=== PATIENT | female | born 1945 | race Caucasian/White ===

== ENCOUNTER 2016-06-16 03:50 | Emergency (ER) | payer MEDICARE ==
[2016-06-16 03:28] LABS: BASOPHILS 0.7 %; BASOPHILS ABSOLUTE 0.04 10/3/uL (0.0-0.16); EOSINOPHILS 1.8 %; ER CBC TAT 0 Hrs 08 Mins; HEMATOCRIT 29.7 % (36.0-48.0); HEMOGLOBIN 8.8 g/dL (12.0-16.0); IMMATURE GRANULOCYTES 0.6 %; IMMATURE GRANULOCYTES ABSOLUTE 0.03 10/3/uL (0.0-0.11); LYMPHOCYTES ABSOLUTE 1.85 10/3/uL (0.67-4.30); MEAN PLATELET VOLUME 10.9 fL (9.2-13.0); MONOCYTES 16.9 %; MONOCYTES ABSOLUTE 0.92 10/3/uL (0.21-1.20); RBC DISTRIBUTION WIDTH 16.2 % (12.0-16.0); RED CELL COUNT 4.14 10/6/uL (4.0-5.6); WHITE BLOOD CELLS 5.4 10/3/uL (4.5-10.5)
[2016-06-16 03:29] LABS: MEAN CORPUS HGB CONC 29.6 g/dL (32.0-36.0); MEAN CORPUSCULAR HEMOGLOB 21.3 pg (26.0-34.0); MEAN CORPUSCULAR VOLUME 71.7 fL (80-100); PLATELET COUNT 94 10/3/uL (150-400)
[2016-06-16 03:30] LABS: MANUAL DIFF NO %
[2016-06-16 03:32] LABS: INTERNATIONAL NORMAL RATI 1.2 UNITS (-); PARTIAL THROMBO TIME 30.9 SEC (22.5-37.2); PROTIME (NOT ORD) 14.7 SEC (12.0-14.5)
[2016-06-16 03:43] LABS: ALBUMIN 3.3 G/DL (3.5-5.0); BUN (BLOOD UREA NITROGEN) 8 MG/DL (6-23); CALCIUM, SERUM 8.2 MG/DL (8.5-10.4); CHEST PAIN PROFILE TAT 0 Hrs 23 Mins; CHLORIDE, SERUM 108 MMOL/L (96-112); CO2 (CARBON DIOXIDE) 26 MMOL/L (24-34); CREATININE 1.07 MG/DL (0.55-1.02); DIRECT BILIRUBIN 0.2 MG/DL (0.0-0.4); GFR AFRICAN AMERICAN 61 ML/MIN (>=60); GFR NON AFRICAN AMERICAN 53 ML/MIN (>=60); SGOT(AST) 11 U/L (5-40); SGPT(ALT) 18 U/L (5-65); SODIUM, SERUM 142 MMOL/L (135-148); TROPONIN I <0.02 NG/ML (<0.05)
[2016-06-16 03:46] LABS: ALKALINE PHOSPHATASE 202 U/L (45-117); GLUCOSE, SERUM 154 MG/DL (60-99); INDIRECT BILIRUBIN(NOT ORDER) 0.2 MG/DL (0.1-0.9); TOTAL BILIRUBIN 0.4 MG/DL (0-1.2)
[~2016-06-16 03:50] MED LIST: ESTRACE1 MG PO; HYDROCHLOROT50 MG PO; INDE80 PO; KDUR20 PO; LIPITOR20 PO; NEXIUM40 PO; PLAQ200B PO; PRILO PO; PROTONIX PO; REG PO; SYN1 PO; XALAT OPH; ZOL50 PO
[2016-06-16 03:59] LABS: PLATELET ESTIMATE DEC (ADEQUATE)
[2016-06-16 04:00] LABS: HYPOCHROMIA 1+ (3-10/OIF) (0-2/OIF)
[2016-06-16 04:01] LABS: ELLIPTOCYTES 1+ (3-10/OIF) (0-2/OIF)
[2016-06-24] MEDS ORDERED: AMARYL2 PO (09:18)
[2016-06-24] MEDS ORDERED: AMB10 PO (09:18)
[2016-06-24] MEDS ORDERED: PLAQ200B PO (09:19)
[2016-06-24] MEDS ORDERED: PREV30 PO (09:19)
[2016-06-24] MEDS ORDERED: SYN88 PO (09:20)
== END 2016-06-16 04:21 | disposition home or self-care (01) ==
LOC: ER 03:50
PROVIDERS: Emergency Medicine
DX: K80.20 Calculus of gallbladder without cholecystitis without obstruction (principal); D64.9 Anemia, unspecified; I10 Essential (primary) hypertension; K21.9 Gastro-esophageal reflux disease without esophagitis; M32.9 Systemic lupus erythematosus, unspecified; Z90.710 Acquired absence of both cervix and uterus; Z88.2 Allergy status to sulfonamides; Z88.5 Allergy status to narcotic agent; Z88.0 Allergy status to penicillin; Z79.899 Other long term (current) drug therapy
CPT/HCPCS: 71010; 74176; 80048; 80076; 83690; 83735; 84484; 85025; 85610; 85730; 93005; 99285; A9270-GY

== ENCOUNTER 2016-06-26 11:16 | Observation (INO) | payer MEDICARE ==
[2016-06-24 12:52] LABS: BASOPHILS 0.8 %; BASOPHILS ABSOLUTE 0.04 10/3/uL (0.0-0.16); EOSINOPHILS 1.6 %; EOSINOPHILS ABSOLUTE 0.08 10/3/uL (0.0-0.53); HEMATOCRIT 29.5 % (36.0-48.0); HEMOGLOBIN 8.8 g/dL (12.0-16.0); IMMATURE GRANULOCYTES 0.6 %; IMMATURE GRANULOCYTES ABSOLUTE 0.03 10/3/uL (0.0-0.11); LYMPHOCYTES 36.9 %; LYMPHOCYTES ABSOLUTE 1.82 10/3/uL (0.67-4.30); MEAN CORPUS HGB CONC 29.8 g/dL (32.0-36.0); MEAN CORPUSCULAR HEMOGLOB 21.2 pg (26.0-34.0); MEAN CORPUSCULAR VOLUME 70.9 fL (80-100); MONOCYTES ABSOLUTE 0.74 10/3/uL (0.21-1.20); NEUTROPHILS 45.1 %; NEUTROPHILS ABSOLUTE 2.22 10/3/uL (2.02-8.40); PLATELET COUNT 103 10/3/uL (150-400); RBC DISTRIBUTION WIDTH 16.3 % (12.0-16.0); RED CELL COUNT 4.16 10/6/uL (4.0-5.6); WHITE BLOOD CELLS 4.9 10/3/uL (4.5-10.5)
[2016-06-24 12:53] LABS: MANUAL DIFF NO %
[2016-06-24 13:10] LABS: HYPOCHROMIA 3+ (>30/OIF) (0-2/OIF); PLATELET ESTIMATE SLT DEC (ADEQUATE); RBC MORPHOLOGY ABN (NORMAL)
[2016-06-24 13:14] LABS: A/G RATIO 1.1 (0.7-1.9); ALBUMIN 3.5 G/DL (3.5-5.0); ALKALINE PHOSPHATASE 156 U/L (45-117); BUN (BLOOD UREA NITROGEN) 9 MG/DL (6-23); CALCIUM, SERUM 8.6 MG/DL (8.5-10.4); CHLORIDE, SERUM 106 MMOL/L (96-112); CO2 (CARBON DIOXIDE) 28 MMOL/L (24-34); GFR AFRICAN AMERICAN 87 ML/MIN (>=60); GFR NON AFRICAN AMERICAN 75 ML/MIN (>=60); GLOBULIN 3.2 G/DL (2.5-4.1); GLUCOSE, SERUM 166 MG/DL (60-99); POTASSIUM, SERUM 4.2 MMOL/L (3.5-5.3); SGOT(AST) 15 U/L (5-40); SGPT(ALT) 16 U/L (5-65); SODIUM, SERUM 139 MMOL/L (135-148); TOTAL BILIRUBIN 0.6 MG/DL (0-1.2); TOTAL PROTEIN 6.7 G/DL (6.0-8.5)
[2016-06-24 13:56] LABS: ASCORBIC ACID (UR NOT ORDER) NEG (NEG); BILIRUBIN, URINE NEGATIVE (NEG); KETONE, URINE NEGATIVE (NEG); LEUKOCYTE ESTERASE(NOT OR MOD (NEG); WBC (NOT ORDERED) (RFLEX) 67 (0-5)
--- NOTE | ~2016-06-26 | OP ---
Record Of Operation [facility] [address] [place]. [address] NAME: KASSI RAMACHANDRAN : 45 STATUS : DIS Gonzalez PAT#: [id number] AGE: 70 ADM/REG DATE : 06/26/16 MR#: [id number] REPORT SERV DATE: 07/01/16 DICTATED BY: SRIDHAR ARROYO DATE: 07/01/16 REPORT STATUS : Draft TRANSCRIBED BY: MODL DATE: 07/01/16 DATE OF PROCEDURE: 06/26/2016 PREOPERATIVE DIAGNOSIS: Symptomatic gallstones, possible cirrhosis of the liver, prior open gastric surgery. POSTOPERATIVE DIAGNOSIS: Symptomatic gallstones, cirrhosis of the liver, extensive upper midline abdominal adhesions. PROCEDURE: Laparoscopic cholecystectomy with intraoperative cholangiogram and Demarco-Cut needle biopsy right lobe of liver. SURGEON: Sridhar Arroyo M.D. ANESTHESIA: General endotracheal. ESTIMATED BLOOD LOSS: 100 mL. FLUIDS: Crystalloid. SPECIMEN: Gallbladder and needle biopsy of right lobe of liver. DRAINS: 15 fluted subhepatic. COMPLICATIONS: None immediate. CONDITION: Fair. 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 She has now developed symptomatic gallstones. She also has splenomegaly with diminished white count, platelet count. No obvious evidence of cirrhosis on ultrasound or CT. She very clearly suffered from symptomatic stones and after review of risks, benefits, options, side effects, she would like to pursue a cholecystectomy to get symptom relief. Her primary provider would like a liver biopsy to try to rule in or rule out chronic liver disease. Again, the patient has undergone previous open gastric surgery. We have reviewed the risks, benefits, potential for open procedure. PROCEDURE IN DETAIL: After being identified in preop holding, she was brought to OR, positioned supine. General endotracheal anesthesia was induced. Time-out was performed. Ancef was given intravenously. In the mid right abdomen at the level of the umbilicus, we infiltrated Marcaine solution, made a vertical skin incision, dissected through the subcutaneous and exposed the abdominal wall. Traction suture 0 Vicryl was applied. We dissected through the layers of abdominal wall exposing the preperitoneal plane. Deeper layer of 0 Vicryl traction sutures were Record Of Operation [facility] [address] [place]. [address] NAME: KASSI RAMACHANDRAN : 45 STATUS : DIS Gonzalez PAT#: [id number] AGE: 70 ADM/REG DATE : 06/26/16 MR#: [id number] REPORT SERV DATE: 07/01/16 DICTATED BY: SRIDHAR ARROYO DATE: 07/01/16 REPORT STATUS : Draft TRANSCRIBED BY: GISEL DATE: 07/01/16 applied. We then grasped peritoneum, elevated, opened with Metzenbaum scissors, and we were within the peritoneal cavity. A 10 mm balloon trocar was anchored, 15 mm carbon dioxide pneumoperitoneum was created, and a 30-degree 5 mm scope was advanced. There was extensive adhesions to the midline incision that extended from the umbilicus to the xiphoid; however, we were able to visualize the gallbladder in the right upper quadrant. There was adhesion in the adherence from the prior gastric polyp excision and pyloroplasty with the duodenum adherent to the underside of the left lobe of the liver, but there appeared the intervening fat between the duodenum and the medial neck of the gallbladder. At this point, we with visualization through the laparoscope and Marcaine infiltration made skin incision and advanced a 10 mm trocar in the medial right subcostal region just lateral to the adherent stomach and omental fat. We then placed a 5 mm trocar in the lateral right subcostal and lateral lower right abdominal wall again with visualization through the laparoscope. The gallbladder was a bit tense, it was punctured and decompressed of a clear colorless fluid. It was retracted superiorly and lateral, and we were able to free some filmy adhesion of the infrahepatic fat down to the neck of the gallbladder. The peritoneal folds along the neck of the gallbladder were dissected open with a Maryland-type dissector. I was able identify the cystic duct egressing the gallbladder. There was clearly a cirrhotic liver with portal hypertension. There was quite a bit of bloody oozing from the liver. We dissected the cystic duct circumferential, milked towards the gallbladder, placed an occlusive clip across the neck of the gallbladder. Next, made a cystic ductotomy and advanced and anchored the cholangiogram catheter. Fluoroscopy was brought on the field. Cholangiogram revealed a spiraling cystic duct that coursed into a nondilated common duct with prompt flow distal into duodenum. There was such rapid flow that was difficult to identify the proximal biliary system. With a vigorous contrast injection, I was able identify the proximal proper hepatic duct. Again, with a normal caliber proper hepatic duct, common bile duct and very prompt flow of contrast into duodenum, I took fluoro off the field and reinserted the laparoscopic instrumentation. The cholangiogram catheters were removed and the cystic duct was clipped occlusively x3 on the common duct side of cannulation and the cystic duct was divided at the point of cannulation. Carefully dissected in Calot's triangle and identified a bifurcated cystic artery. Each branch was clipped x3, divided between the middle clip, clipped on gallbladder side. We then used hook cautery to dissect the gallbladder out of gallbladder fossa. This was a difficult dissection with the bleeding from the portal hypertensive liver that required considerable cautery use. We had excellent visualization again, no bowel in the vicinity. Once the gallbladder had been extracted from the liver bed, it was placed in EndoCatch and extracted out the subxiphoid trocar path. We now suctioned all subhepatic and suprahepatic fluid, thoroughly inspected and there was good clip positioning. No bleeding. No evidence of bile leak. Through the inferolateral 5 mm trocar, a 15 fluted drain was advanced and positioned subhepatic. With visualization through laparoscope, the upper abdominal trocars were Record Of Operation [address] [id number] NAME: KASSI RAMACHANDRAN : 45 STATUS : DIS Gonzalez PAT#: [id number] AGE: 70 ADM/REG DATE : 06/26/16 MR#: [id number] REPORT SERV DATE: 07/01/16 DICTATED BY: SRIDHAR ARROYO DATE: 07/01/16 REPORT STATUS : Draft TRANSCRIBED BY: MODL DATE: 07/01/16 removed, there was no bleeding. Finally, the abdomen was desufflated, and the right midabdominal visualizing laparoscope was removed after desufflation. Drain was anchored with a 2-0 nylon. Dermis was closed at all incisions with 4-0 Monocryl, followed by Benzoin, Steri-Strips, and sterile dressing. Bulb suction was applied to the drain. She was recovered from anesthetic, extubated, and transported to recovery room in good and stable condition. She tolerated surgery well. We are going to dictate a 22 modifier. This surgery took 2 times the normal amount of time due to the prior upper abdominal surgery as well as the cirrhosis of the liver. As an addendum I would also like to point out prior to the termination of the procedure, we did to three Demarco-Cut needle biopsies of the right lobe of the liver through a stab incision. These were of good quality cores sent in formalin. Each puncture point in the liver bled but was controlled readily with cautery. AMINAH/GISEL Sridhar Arroyo M.D. / [id number] CC: Richelle Stiles M.D.
[~2016-06-26 11:16] MED LIST changes: +AMARYL2 PO; +AMB10 PO; +PREV30 PO; +SYN88 PO
[2016-06-27 06:43] LABS: BASOPHILS 0.1 %; BASOPHILS ABSOLUTE 0.01 10/3/uL (0.0-0.16); EOSINOPHILS 0 %; HEMATOCRIT 29.1 % (36.0-48.0); HEMOGLOBIN 8.8 g/dL (12.0-16.0); IMMATURE GRANULOCYTES 0.5 %; IMMATURE GRANULOCYTES ABSOLUTE 0.05 10/3/uL (0.0-0.11); LYMPHOCYTES 6.5 %; MEAN CORPUS HGB CONC 30.2 g/dL (32.0-36.0); MEAN CORPUSCULAR HEMOGLOB 21.4 pg (26.0-34.0); MEAN CORPUSCULAR VOLUME 70.8 fL (80-100); MEAN PLATELET VOLUME 10.7 fL (9.2-13.0); MONOCYTES ABSOLUTE 1.39 10/3/uL (0.21-1.20); NEUTROPHILS 79.9 %; NEUTROPHILS ABSOLUTE 8.58 10/3/uL (2.02-8.40); PLATELET COUNT 111 10/3/uL (150-400); RBC DISTRIBUTION WIDTH 16.4 % (12.0-16.0); RED CELL COUNT 4.11 10/6/uL (4.0-5.6)
[2016-06-27 06:44] LABS: MANUAL DIFF NO %; WHITE BLOOD CELLS 10.7 10/3/uL (4.5-10.5)
[2016-06-27 07:02] LABS: A/G RATIO 0.9 (0.7-1.9); ALBUMIN 3.2 G/DL (3.5-5.0); BUN (BLOOD UREA NITROGEN) 9 MG/DL (6-23); CALCIUM, SERUM 8.6 MG/DL (8.5-10.4); CHLORIDE, SERUM 103 MMOL/L (96-112); CO2 (CARBON DIOXIDE) 24 MMOL/L (24-34); CREATININE 0.84 MG/DL (0.55-1.02); GFR AFRICAN AMERICAN 82 ML/MIN (>=60); GFR NON AFRICAN AMERICAN 70 ML/MIN (>=60); GLOBULIN 3.6 G/DL (2.5-4.1); GLUCOSE, SERUM 145 MG/DL (60-99); SGOT(AST) 27 U/L (5-40); SGPT(ALT) 20 U/L (5-65); SODIUM, SERUM 138 MMOL/L (135-148); TOTAL BILIRUBIN 0.9 MG/DL (0-1.2); TOTAL PROTEIN 6.8 G/DL (6.0-8.5)
[2016-06-27 07:06] LABS: ALKALINE PHOSPHATASE 144 U/L (45-117)
[2016-06-27 08:04] LABS: PLATELET ESTIMATE SLT DEC (ADEQUATE)
[2016-06-27 08:05] LABS: HYPOCHROMIA 1+ (3-10/OIF) (0-2/OIF); MICROCYTES 1+ (5-10/OIF) (0-5/OIF); POLYCHROMASIA 1+ (2-5/OIF) (0-1/OIF)
[2016-06-27] MEDS ORDERED: NORCO1 TA1 PO (09:55)
== END 2016-06-27 12:45 | disposition home or self-care (01) ==
LOC: SDC 11:16 → SDC/OF 18:24 → 4SO 19:47
PROVIDERS: Surgery
PROC: 0FB13ZX Excision of Right Lobe Liver, Percutaneous Approach, Diagnostic (ICD-10-PCS; 2016-06-26)
PROC: 0FT44ZZ Resection of Gallbladder, Percutaneous Endoscopic Approach (ICD-10-PCS; principal; 2016-06-26 12:45)
PROC: BF13YZZ Fluoroscopy of Gallbladder and Bile Ducts using Other Contrast (ICD-10-PCS; 2016-06-26 12:45)
DX: K80.10 Calculus of gallbladder with chronic cholecystitis without obstruction (principal); K76.0 Fatty (change of) liver, not elsewhere classified; K74.60 Unspecified cirrhosis of liver; I10 Essential (primary) hypertension; E78.00 Pure hypercholesterolemia, unspecified; E03.9 Hypothyroidism, unspecified; E11.9 Type 2 diabetes mellitus without complications; F41.9 Anxiety disorder, unspecified; F32.9 Major depressive disorder, single episode, unspecified; K21.9 Gastro-esophageal reflux disease without esophagitis; K31.84 Gastroparesis; M32.9 Systemic lupus erythematosus, unspecified; H40.9 Unspecified glaucoma; Z90.710 Acquired absence of both cervix and uterus; Z88.0 Allergy status to penicillin; Z88.5 Allergy status to narcotic agent; Z88.2 Allergy status to sulfonamides; Z79.818 Long term (current) use of other agents affecting estrogen receptors and estrogen levels; Z79.899 Other long term (current) drug therapy; Z98.890 Other specified postprocedural states; Z96.1 Presence of intraocular lens; Z98.42 Cataract extraction status, left eye
CPT/HCPCS: 80053; 81001; 82150; 82962; 85025; 87077; 87086; 87186; 88304; 88307; 88313; 96374; 96375; 96376; A9270-GY; G0378; J0690; J2250; J2405; J2710; J3010; Q9967